=== PATIENT | female | born 2000 | race Caucasian/White ===

== ENCOUNTER 2021-03-16 05:59 | Day surgery (SDC) | payer OTHER, SELFPAY ==
[2021-03-16] VITALS (10 sets, daily range): BP systolic 133–163; BP diastolic 87–121; PULSE 76–100; RESP 15–18; TEMP 36.1–36.7; O2SAT 95–100; BMI 35.2
[2021-03-16] MEDS: Lactated Ringers 1,000 ML 15 ML IV ×2 (06:46→09:00)
[2021-03-16 06:55] LABS: Internal QC Validated? YES +Cl - CLEAR BKGD; Pregnancy, Urine Negative Negative
[2021-03-16] MEDS: Epinephrine (1 mg/ml) 1 MG/ML VIAL (08:29)
--- NOTE | 2021-03-16 09:58 | PCM.DC ---
Discharge Instructions Follow Up Care Test Results: Test results from this visit will be discussed in further detail at your follow-up appointment, if applicable. Discharge Plan Admission Attending Provider: Julio Cesar Hoyos Primary Care Provider: Care Physician,Karena Primary Instructions Additional Instructions / Restrictions: Okay to remove dressing on postoperative day #2 and shower if no significant drainage. Maintain Steri-Strips until they fall off Cover incisions with Band-Aids if any drainage, otherwise okay to leave open to air after postoperative day #2. Initiate aspirin 81 mg twice daily for DVT prophylaxis on 03/17/2021 Ice elevation recommended Discharge Orders/Prescriptions Prescriptions: New aspirin [Ecotrin Low Strength] 81 mg tablet,delayed release (DR/EC) 81 mg PO BID Qty: 28 RF: 0 No Action levonorgestrel-ethinyl estrad [Larissia] 0.1-20 mg-mcg Tablet 1 tab PO DAILY RF: 0 Referrals / Follow Up: Julio Cesar Hoyos DO [STAFF PHYSICIAN] - Within 2 Weeks Care Physician,No Primary [Primary Care Provider] - Disposition Disposition (needs filled in before D/C Order can be placed): Home, Self Care
--- NOTE | 2021-03-16 09:58 | PCM.OPRPT ---
Report of Operation Date of Procedure: 03/16/21 Description of Surgical Findings:: Preoperative diagnosis: 1. Right knee anterior cruciate ligament rupture 2. Right knee Posterior medial meniscus RAMP lesion Postoperative diagnosis: 1. Right knee anterior cruciate ligament rupture 2. Right knee Posterior medial meniscus RAMP lesion - healed Procedure: Diagnostic and operative right knee arthroscopy with quadriceps autograft anterior cruciate ligament reconstruction Primary Surgeon: Julio Cesar Hoyos DO Delivery And Mail Sorter: Mikaela Felton PA-C Anesthesia: General LMA with adductor canal block Garbage Pick Up Man: Aftab Ojeda CRNA Complications: None apparent Estimated blood loss: 25 cc IV fluids: Per anesthesia record Implants: Arthrex tight rope femoral fixation with ABS button tibial sided fixation Intraoperative findings: Stable medial meniscus Complete full-thickness ACL rupture Preoperative indications: This is an otherwise healthy 20-year-old female seen in the outpatient setting diagnosed with a right knee anterior cruciate ligament rupture. She sustained injury playing soccer approximately 4 months ago. MRI confirmed the diagnosis. She rehabbed her knee and regain full motion and excellent strength. She did experience considerable instability and avoidance of specific activities after rehab. Operative intervention in the form of right knee anterior cruciate ligament reconstruction was recommended. We discussed graft options. We settled on a quadriceps autograft. The risk, benefits, alternatives to the procedure was reviewed with the patient at length. Risks included but were not limited to bleeding, wound complications, infection, loss of life or limb, need for additional surgery, continued instability, persistent pain, posttraumatic arthritis, stiffness, difficulty returning to sport, risk of anesthesia, DVT or PE, neurovascular injury. Patient expressed understanding his risks and wished to proceed with surgery. Informed consent obtained in the office. Description of procedure: Patient was identified in preoperative holding area by name, medical record number, and date of . The operative extremity was marked. Informed consent confirmed with the patient. All questions were answered to patient satisfaction. At time of her procedure, patient was brought to the operative suite and positioned supine on a standard operating table. All bony prominences were well-padded. General anesthesia was induced and laryngeal mask airway placed. After securing the tube, I placed a well-padded pneumatic tourniquet on the upper thigh of the operative extremity. I first examined the leg under anesthesia. There was a positive pivot shift and Derek. We then positioned the operative extremity in a circumferential arthroscopic leg sparks. A well-leg sparks was placed on the patient's nonoperative thigh. We then dropped the foot of the bed 90 degrees. We then prepped and draped the operative lower extremity in a normal, sterile orthopedic fashion. We performed a timeout with all parties in attendance in agreement with the side, site, operation to be performed. No concerns were voiced and we elected to proceed with surgery. 2 g Ancef was administered for antibiotic prophylaxis prior to the incision by the anesthesia staff. Given the positive provocative findings and positive MRI findings consistent with ACL rupture, I elected to harvest the graft first. I planned a midline incision overlying the quadriceps tendon approximately 5 cm in length. Skin was sharply incised with a 15 blade scalpel through skin and subcutaneous tissue. Subcutaneous fat was cleared exposing the peritenon of the quadriceps. The quadriceps peritenon was carefully elevated and dissected free from the underlying tendon, in line with the skin incision. I then identified the insertion of the tendon on the superior pole of the patella. I utilized the parallel cutting guide 9 mm in diameter to establish the width of our tendon harvest. I sharply dissected the insertion off of the patella. I elevated a partial thickness graft. After gaining approximately 4 cm in length, I performed a whipstitch for fixation into the tendon with a FiberWire suture. I then utilized a guerrero elevator and scalpel to continue to elevate the graft. I was able to elevate the tendon graft free to a length of [] millimeters. This was cut sharply with the cigar cutting instrument from [employer]. Due to some excessive bleeding, likely due to venous back pressure, I elected to exsanguinate the extremity with Esmarch bandage inflated tourniquet to 275 mmHg. The void in the quadriceps was then closed with 0 Vicryl suture. Peritenon was closed with 0 Vicryl suture in watertight fashion. I reapproximate the dermis with buried 3-0 Vicryl suture and finally reapproximated the skin with a running subcuticular 4-0 Monocryl suture. Steri-Strips were then applied. The graft was moved to the back table where my research assistant, Purnima, began to prepare the graft. She prepared a standard all inside fixation with a tight rope attachment on the femoral side. The graft was pretensioned. After the graft was prepared, it was left under tension and kept fresh with a moist sponge. 10.5 mm was the final graft diameter for both the femoral and tibial tunnels. During time of graft preparation performed by my research assistant, I commenced diagnostic and operative arthroscopy. Establish a standard anterolateral portal with an 11 blade scalpel. Blunt tipped trocar and cannula was inserted through this portal as the knee was brought into full extension into the patellofemoral joint. Trocar was removed and arthroscope introduced. Examination of the knee revealed a stable, healed ramp lesion of the medial meniscus posterior horn. The remainder of the knee was pristine. The remnants of the ACL was then encountered. ACL rupture was confirmed. I resected the remaining portion of the ACL with a radial resector, marking the footprints with the radiofrequency ablator. I then performed a notchplasty in standard fashion with a 5.5 mm bur. I then introduced the flip cutter drill guide through the anterior lateral portal and the camera was moved to the anterior medial portal. I positioned the drill guide to allow for 2 mm of back wall at approximately the 10:30 position on the lateral wall of the notch. I made a stab incision along the lateral thigh in line with the planned trajectory of the flip cutter. Skin, subcutaneous tissue, and IT band were sharply incised and dilated. Drill guide and drill were then passed down to the level of the lateral femoral cortex. We drilled through the lateral cortex into the intercondylar notch at the planned trajectory location. The flip cutter was then deployed to a diameter of 10.5 mm. The flip cutter was then used to retrograde drill the femoral socket to a depth of approximately 30 mm. Flip cutter was then retracted and pulled from the wound. A fiber stick was then introduced through the femoral socket. The fiber wire was then retrieved out the anterior lateral portal and luggage tagged. Loose pieces of bone was debrided with a radial resector from the knee. I then switched the camera to the lateral portal. I placed the tibial drill guide through the anterior medial portal planning be tunnel placement at the [place] [employer] footprint of the ACL. I sharply incised the skin with an 11 blade scalpel through skin and subcutaneous tissues over the anterior medial tibia with planned trajectory of the drill course. I then drilled through the anterior medial tibia into the joint at the planned trajectory. I deployed the flip cutter to a diameter of 10.5 mm and drilled retrograde fashion for the tibial socket, approximately 27 mm in length. I then reversed the flip cutter to 3.5 mm and removed from the joint. I placed a tiger stick through the tibial tunnel and retrieved out the anterior medial portal. I then brought the graft to the surgical field. I retrieved the loop end of the femoral side shuttling suture through the anterior medial portal and attached to the suture ends of the femoral side button of the graft. We then passed the sutures and button through the femoral tunnel. The tight rope button was then deployed and engaged the lateral femoral cortex. We then sequentially tightened the graft to docket into the femoral tunnel. I then retrieve the passing suture for the tibial tunnel at the anteromedial portal and utilized it to pass the tibial side of the graft/sutures. Sutures were then retrieved out the tibial tunnel. I placed an ABS button through the tight rope mechanism is sequentially tightened to appropriate, maximum tension. The knee was then cycled 25 times to prevent creep. Final tightening was performed. I tied 3 half hitch knots over the tibial button. Sutures were then cut. The knee was thoroughly debrided lavage of any loose pieces of bone. Final images were obtained. Tourniquet was deflated with excellent hemostasis. Portal sites and stab incisions were reapproximated with interrupted 4-0 nylon suture. Sterile compression dressing was applied. Need for skilled research assistant:Mikaela Felton PA-C was critical to the outcome of the case. During the course of the procedure the physician research assistant played a vital role. Her intimate knowledge of my steps in the procedure aided in safe and expedient completion of the procedure. The PA played a vital role in positioning particularly in obtaining the appropriate positioning. The PA was also vital in the retraction of soft tissues during the exposure and projecting vital structures. Mrs. Felton also played a guerrero role in terms of graft preparation, graft passing and securing, and supervised wound closure. Without her assistance, the surgery may have taken longer resulting in more time under anesthesia and potentially danger to the patient. Post Operative Plan: Weightbearing: Weightbearing as tolerated operative extremity Antibiotics: Ancef 2 g x 1 dose preoperatively DVT Prophylaxis: 81 mg aspirin twice daily to start postoperative day #1. Smith: None Dressing: Okay to remove on postoperative day #2 and shower if no drainage. Maintain Steri-Strips until they fall off. X-Rays: None Pain Medication: Percocet Rx upon discharge Follow-up: 2 weeks post-operatively with me in the office Therapy: To start in approximately 5 days, this is already been scheduled.
[2021-03-16] MEDS: oxyCODONE 5 MG Tablet PO (12:27)
[2021-03-16] MEDS: Ibuprofen 600 MG Tablet PO (12:28)
[2021-03-16] MEDS: Aspirin 325 MG Tablet PO (13:39)
== END 2021-03-16 13:53 | disposition home or self-care (01) ==
LOC: SDC 06:08 → AC 06:08
PROVIDERS: Anesthesiology; Referring Provider Student in an Organized Health Care Education/Training Program; Visit Provider Student in an Organized Health Care Education/Training Program
PROC: (CPT 29888; principal; 2021-03-16 07:10)
DX: S83.511A Sprain of anterior cruciate ligament of right knee, initial encounter (principal); S83.8X1A Sprain of other specified parts of right knee, initial encounter; S83.221A Peripheral tear of medial meniscus, current injury, right knee, initial encounter; E66.8 Other obesity; Z71.3 Dietary counseling and surveillance; Z68.37 Body mass index [BMI] 37.0-37.9, adult; Y93.72 Activity, wrestling
CPT/HCPCS: 29888; 64447; 81025; J7120; J2405

== ENCOUNTER → 2023-04-29 | Outpatient (CLI) | payer OTHER, SELFPAY ==
--- OUTSIDE RECORDS SUMMARY | 2023-04-29 15:10 | XMS RPT_ITS | CCD ---
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 PROGRAM, SOME INFORMATION MAY BE OMITTED. This clinical summary was aggregated from multiple sources. Caution should be exercised in using it in the provision of clinical care. This summary normalizes information from multiple sources, and as a consequence, information in this document may materially change the coding, format and clinical context of patient data. In addition, data may be omitted in some cases. CLINICAL DECISIONS SHOULD BE BASED ON THE PRIMARY CLINICAL RECORDS. [employer] provides no warranty or guarantee of the accuracy or completeness of information in this document.
[2023-04-29 15:53] LABS: EXAGEN MAILED SPECIMEN
[2023-04-29 17:37] LABS: Absolute Lymphocyte Count 2.45 X10^3/uL (0.83-4.51); Absolute Neutrophil Count 4.7 X10^3/uL (2.0-7.7); Basophil# 0.03 X10^3/uL; Basophil% 0.4 % (0-1); Eosinophil# 0.07 X10^3/uL; Eosinophils% 0.9 % (0-5); Hemoglobin 12.8 g/dL (12.0-15.0); Lymphocyte # 2.45 X10^3/ul (0.83-4.51); Lymphocyte % 31.7 % (19-41); Mean Corp Hgb Conc 32.8 g/dL (32-36); Mean Corpuscular Hgb 29.2 pg (27.0-32.0); Mean Platelet Vol. 11.5 fl (6.2-12.0); Monocyte# 0.51 X10^3/uL; Monocyte% 6.6 % (0-10); NRBC Flagged by Analyzer 0 % (0-5); Neutrophil # 4.67 X10^3/uL (2.7-7.7); Neutrophil % 60.3 % (47-70); Platelet Count 277 K/mm3 (150-450); RBC Distribution Width CV 12.6 % (11.6-14.6); RBC Distribution Width SD 41.4 fl (35.1-43.9); Red Blood Count 4.38 M/mm3 (4.2-5.4); White Blood Count 7.7 K/mm3 (4.4-11.0)
[2023-04-29 17:39] LABS: Color, Urine Yellow (Yellow); Glucose, Dipstick Normal (Normal); Ketone-Dipstick Negative (Negative); Leukocyte Esterase-Dipstick 100 /ul (Negative); Nitrite-Dipstick Negative (Negative); Occult Blood-Urine Negative /ul (Negative); Protein-Dipstick Negative (Negative); Specific Gravity, Urine 1.015 (1.002-1.030); Urine Bilirubin Dipstick Negative (Negative); Urine Clarity Clear (Clear); Urine Urobilinogen Normal (Normal)
[2023-04-29 17:47] LABS: Prothrombin Time (Protime)PT. 13.6 SECONDS (11.7-14.9)
[2023-04-29 17:48] LABS: Partial Thromboplast Time 30.7 Seconds (24.1-36.2)
[2023-04-29 17:54] LABS: Protein, Urine (Random) 7.1 mg/dL (<11.9); Protein:Creat Ratio 60 mg/g CRE (0-200)
[2023-04-29 17:56] LABS: Erythrocyte Sedimentation Rate 30 mm/hr (0-30)
[2023-04-29 18:09] LABS: ALB/GLOB Ratio 0.8 RATIO (0.9-2.4); AST(SGOT) 18 U/L (15-37); Alanine Aminotransfer ALT/SGPT 24 U/L (13-56); Albumin, Serum 3.4 g/dL (3.2-5.0); Alkaline Phosphatase 76 U/L (45-117); Anion Gap 7 (5-15); BUN 14 mg/dL (7-18); BUN/Creat Ratio 13.2 RATIO (10-20); CRP 7.22 mg/L (0.0-3.0); Calcium,Total 8.8 mg/dL (8.5-10.1); Chloride 106 mmol/L (98-107); Creatinine, Serum 1.06 mg/dL (0.55-1.02); EST Glomerular Filtration Rate 67 mL/min (>60); Est Glom Filt Rate - Afr Amer 81 mL/min (>60); Globulin 4.4 g/dL (2.2-4.2); Glucose 87 mg/dL (74-106); Potassium 3.7 mmol/L (3.5-5.1); Protein, Total 7.8 g/dL (6.4-8.2); Sodium Level 134 mmol/L (136-145)
[2023-04-29 18:47] LABS: Hepatitis B Surface Antibody Non-Reactive; Hepatitis B Surface Antigen Non-Reactive (Nonreactive); Hepatitis C Antibody Non-Reactive (Nonreactive)
[2023-05-02 04:08] LABS: Dilute Prothrombin Time (dPT) 48.2 sec (0.0-47.6); Dilute Russell Viper Venom 41.4 sec (0.0-47.0); Hexagonal Phase Phospholipid 3 sec (0-11); Interpretation Comment: (.); PTT-LA 36.8 sec (0.0-43.5); Thrombin Time 19.5 sec (0.0-23.0); dPT Confirm Ratio 1.69 Ratio (0.00-1.34)
== END | disposition home or self-care (01) ==
PROVIDERS: PCP Physician Assistant; Referring Provider Internal Medicine Rheumatology; Visit Provider Internal Medicine Rheumatology
DX: M06.4 Inflammatory polyarthropathy (principal); M21.41 Flat foot [pes planus] (acquired), right foot; R76.8 Other specified abnormal immunological findings in serum
CPT/HCPCS: 36415; 80053; 81002; 82570; 84156; 85025; 85598; 85610; 85652; 85670; 85730; 86140; 86706; 86803; 87340